=== PATIENT | female | born 1965 | race Caucasian/White ===

== ENCOUNTER → 2018-11-02 | Outpatient (CLI) | payer OTHER ==
--- NOTE | 2018-11-02 15:00 | KCIC ---
Bilateral diagnostic digital mammograms: Reason for examination: Left breast lump on clinical exam in the 2:00 position 1 cm from the nipple. Comparison is made to previous examinations dated 10/25/2014, 03/23/2014 and 03/10/2014. Interpretation was made with the benefit of CAD. The skin and nipples show no abnormalities. No abnormal axillary lymph nodes are seen. The breast parenchyma shows scattered fibroglandular density. (Breast density: Category B.) There are no dominant masses, suspicious calcifications or architectural distortions. Impression: No evidence of malignancy. Ultrasound to follow. BI-RADS Category 0: Incomplete. Needs additional imaging evaluation. Left breast ultrasound: Comparison is made to previous examination dated 10/25/2014. Ultrasound examination was performed with special attention to the area of clinical concern but also in the areas of previous sonographic concern and the left axilla. There is a small 3.5 x 4 mm focus of decreased echogenicity at the 1:00 position 4.5 cm from the nipple which probably represents a small focus of fibrocystic change. There appears to be some cystic ductal ectasia in the retroareolar 2:00 position. There is a small intramammary lymph node at the 2:30 position 9 cm from the nipple measuring 5.9 mm in greatest dimension. There is an adjacent hypoechoic circumscribed lesion at the 2:30 position 9 cm from the nipple which may represent a small complicated cysts or fibroadenoma measuring 4.2 mm in greatest dimension. No other cystic or solid lesions are seen. No abnormal appearing lymph nodes are seen in the axilla. IMPRESSION: Small fibrocystic type nodules at the 1:00 position 4.5 cm from the nipple and at the 2:30 position 9 cm from the nipple. Recommend 6 month sonographic follow-up. BI-RADS Category 3: Probably Benign. "Our facility is accredited by the [employer] Mammography [employer]." This patient's information has been entered into a reminder system for the patient to be notified with the results of her examination and a target date for the next mammogram. Electronically signed by: Monse Corrales MD (11/02/2018 2:55 PM) [id number]
== END | disposition home or self-care (01) ==
LOC: KCIC MAMMO 12:52
PROVIDERS: ATTEND Family Medicine
DX: N63.21 Unspecified lump in the left breast, upper outer quadrant (principal)
CPT/HCPCS: 76641; 77066

== ENCOUNTER → 2019-04-11 | Outpatient (CLI) | payer OTHER ==
--- NOTE | 2019-04-11 15:53 | KCIC ---
Left breast ultrasound HISTORY: Follow-up of probably benign fibrocystic lesions of the left upper outer breast. COMPARISON: S ultrasound of November 02, 2018. FINDINGS: The 4 mm in size left breast 1:00 position lesion 4.5 cm from the nipple on the prior exam has since resolved, with mild shadowing from Hernan's ligament of this area with no residual lesion consistent with a resolved benign fibrocystic lesion. Left mild subareolar duct ectasia. Left breast 2:30 position 9 cm from the nipple 4 mm intramammary lymph node, stable. Left breast 3:00 position 11 cm from the nipple slightly wider than tall oval circumscribed hypoechoic nonshadowing focus measuring 4 x 3 mm is stable from the prior exam. This is likely a small fibrocystic lesion. IMPRESSION: One of the fibrocystic lesions of the left upper outer breast has resolved since the prior study. The other pre-existing lesions are stable, and remain probably benign. Attention on follow-up left breast sonography in 6 months is advised. BI-RADS Category 3: Probably benign Electronically signed by: Jacob Eduardo MD (04/11/2019 3:50 PM) [id number]
== END | disposition home or self-care (01) ==
LOC: KCIC US 13:57
PROVIDERS: ATTEND Family Medicine
DX: N60.42 Mammary duct ectasia of left breast (principal)
CPT/HCPCS: 76641

== ENCOUNTER → 2020-11-30 | Outpatient (CLI) | payer OTHER ==
--- NOTE | 2020-11-30 17:16 | KCIC ---
EXAMINATION: XR CHEST 2V CLINICAL HISTORY: Vitamin A deficiency, abnormal bloodwork. Pain on inspiration. Hx of noncalcified l eft lung "coin lesion" EXAM DATE/TIME: 11/30/2020 1:57 PM COMPARISON: Chest radiograph 01/28/2013 FINDINGS: Lines, Tubes, and Devices: None. Cardiomediastinal Silhouette: Within normal limits. Lungs and Pleura: Redemonstration of oval nodule in the posterior left lower lobe measuring 2.3 cm, p reviously 2.2 cm. No evidence of focal airspace consolidation or pleural effusion. Pulmonary vasculat ure unremarkable. Bones and Soft Tissues: Degenerative changes of the thoracic spine. Cholecystectomy clips. IMPRESSION: No evidence of acute cardiopulmonary abnormality or significant interval change. 2.3 cm pulmonary nodule versus large granuloma in the left lower lobe, similar to prior study. Electronically signed by: Alessandro Link DO (11/30/2020 5:14 PM) [id number]
== END ==
LOC: KCIC 13:54
PROVIDERS: ATTEND Internal Medicine Rheumatology
DX: E50 Vitamin A deficiency (principal); E50.7 Other ocular manifestations of vitamin A deficiency
CPT/HCPCS: 71046

== ENCOUNTER → 2021-02-01 | Outpatient (CLI) | payer OTHER ==
--- NOTE | 2021-02-01 14:37 | KCIC ---
EXAM: CT Chest without IV contrast CLINICAL HISTORY: Reason: LUNG NODULE / Spl. Instructions: NODULE SEEN ON CXR DONE 11/30/20 / History: COMPARISON: 11/30/2020 TECHNIQUE: CT of the chest without intravenous contrast. Axial, coronal and sagittal reformatted imag es were generated. ---PQRS compliance statement - One or more of the following individualized dose reduction techniques were utilized for this study: 1. Automated exposure control 2. Adjustment of the mA and/or kV according to patient size 3. Use of iterative reconstruction technique--- FINDINGS: Lack of intravenous contrast limits evaluation of solid organs, vasculature, and lymph nodes. Chest: Heart is not enlarged. No pericardial effusion. Ascending aorta measures 3.2 cm. Calcified gra nuloma bilateral hilum. Left lower lobe calcified granuloma measures 2.2 cm corresponding to abnormal ity seen on prior chest radiograph. Multiple 3-4 mm right upper lobe lung nodules are seen. No pleural effusion or pneumothorax. Visualized Upper abdomen: Subcentimeter hypodense right hepatic lobe lesions are too small to accurat jay jay characterize. Cholecystectomy clips are seen. Bones: Multilevel degenerative changes of the spine are seen. No spondylolisthesis. IMPRESSION: 1. 2.2 cm calcified granuloma corresponds to the findings on prior chest radiograph from 11/30/2020. 2. A few 3-4 mm right upper lobe lung nodules are seen. In a low-risk patient, no follow-up is neces jairo. In a high-risk patient, follow-up CT chest in 12 months can be performed. Electronically signed by: Jose Bradford MD (02/01/2021 2:35 PM) [id number]
== END ==
LOC: KCIC CT 09:44
PROVIDERS: ATTEND Nurse Practitioner Gerontology
DX: R91.1 Solitary pulmonary nodule (principal)
CPT/HCPCS: 71250

== ENCOUNTER → 2021-09-25 | Outpatient (CLI) | payer OTHER ==
--- NOTE | 2021-09-25 16:46 | KCIC ---
EXAM: Pelvic sonogram. HISTORY: Postmenopausal bleeding. TECHNIQUE: Sonographic imaging of the pelvis was performed. COMPARISON: None. FINDINGS: The uterus measures 6.2 x 3.9 x 2.1 cm. The endometrial stripe measures 3.7 mm. The ovaries are normal in size and demonstrate normal blood flow. There is no pelvic free fluid. IMPRESSION: Unremarkable pelvic sonogram. Electronically signed by: Sonali Gilbert MD (09/25/2021 4:44 PM) [id number]
== END ==
LOC: KCIC US 14:59
PROVIDERS: ATTEND Family Medicine
DX: N95.0 Postmenopausal bleeding (principal)
CPT/HCPCS: 76856